=== PATIENT | male | born 1980 | race Caucasian/White ===

== ENCOUNTER 2016-09-16 15:00 | Outpatient (RCR) ==
--- NOTE | 2016-09-16 08:43 | RS.OPPTEV2 ---
Date of Note: 09/14/16 Visit #: 1 Date of Evaluation: 09/14/16 Payer Source: Workman's Comp Treatment Diagnosis: Neck pain, continued pain following cervical spine fusion. History of Condition/Mechanism of Injury:: Patient reports that he was injured on the job 11-14-15. Patient was diagnosed with cervicalgia and cervical disc displacement. He underwent cervical disc replacement surgery in March 2016 and had to have surgery again in May 2016. States the most recent surgery included placement of plastic and metal plates with screws for fixation of disc replacement. Prior Level of Function.....Patient was independent with: ADL's, Self Care, Work /Vocation, Caregiving, Ambulation/Mobility, Community Integration/Access Functional Limitations: Sleep, Reaching, Pushing, Pulling, Lifting, Carrying Current Subjective/complaints:: Patient reports onset of increased neck pain on 09/13/15. States his neck motion is limited. States ROM to the left is worse. States she has pain at the left side of the base of the skull to the left shoulder blade area. States he occasionally gets sharp pain into the left UE. He has headaches occasionally. States he recently had an MRI and was told that everything was in place. Medical History Medical History: Cancer Medical History Comments:: Melanoma Surgical History Comments:: Cervical disc replacement March 2016, Cervical spine surgery May 2016. Smoking Status: Current every day smoker Hx Home Medications: Suboxone,Protonix Patient's Goals: His goal is to get relief of neck pain and gain increased neck ROM. Pain Assessment - Pain Description Pain Location: left side of neck to left scapula, headaches Current Pain Intensity: 6/10 Worst Pain Intensity: 8/10 Functional Outcome Measure Neck Disability Index: 54 - G Codes & Severity Modifier G Codes & Modifier: NA Source of G Code score: NA Observation - Observation Inspection: Resting posture in sitting exhibits approximately 10-15 degrees of cervical flexion at rest. Posture: Forward Head, Rounded Shoulders, Scapula Asymmetry (left scapula is elevated) Handedness: Right - ROM Comments: Cervical extension 10 degrees past neutral, cervical flexion 60-70 degrees, rotation right 70-75 degrees, left rotation 50-55 degrees. Bilateral UE AROM. - Strength Cervical Extension: 3 Fair Cervical Flexion: 3 Fair Cervical Lateral Flexion: 3 Fair Comments: Demonstrates general UE strength of 4-/5 with reports of left sided neck pain during MMT of neck and UE's. Palpation Comments:: Patient reports tenderness with palpation along the left suboccipital myofascia and left upper traps. Demonstrates moderate muscle guarding along the left upper traps and cervical paraspinals. Minimal muscle guarding in the right upper traps and cervical paraspinals. Sensation - Sensation Right Upper Extremity: Intact/Normal Left Upper Extremity: Intact/Normal Interventions - Exercise/Activities/Manual Therapy Exercises/Activities: NA Manual Therapy: X 14 mins DTM to bilateral upper traps and cervical paraspinals , emphasis on the left upper traps, levator scapula and cervical paraspinals. Patient demonstrates active trigger point along the superior border of the left scapula. HOME EXERCISE PROGRAM: NA - Charges Total Direct Minutes: 60 mins Total Treatment Time: 60 mins Procedures billed for this date of service:: JUAN Benítez, manual therapy Assessment Assessment: Patient presents to therapy with diagnosis of neck pain. He exhibits limited cervical AROM and general weakness of the UE's and cervical spine. He demonstrates moderate muscle guarding of the left cervical paraspinals and upper traps. He demonstrates good potential to gain relief of neck pain with treatment to decrease muscle guarding and exercises to gain increased cervical spine stability and ROM. Patient Education: Education of diagnosis, Body/Joint mechanics, Home Exercise Program, Home Safety, Activity Modification, Education of Plan of Care Rehab Potential: Good Short Term Goals Goal #1: Patient will display independence with HEP. Goal to be met by: 09/29/16 Goal #2: Tenderness at left cervical paraspinals decreased to minimal. Goal to be met by: 09/29/16 Goal #3: Muscle tone of left upper traps and cervical paraspinals decreased to min. Goal to be met by: 09/29/16 Goal #4: Patient will demonstrate improved postural awareness. Goal to be met by: 09/29/16 Microgrinder Operator Goals Goal #1: Pt to demo. functional cervical AROM with minimal discomfort. Goal to be met by: 11/05/16 Goal #2: Pt to report headaches decreased to seldom. Goal to be met by: 11/05/16 Goal #3: Score on Neck Disability Index improved to 30. Goal to be met by: 11/05/16 Goal #4: Pt able to perform all functional activities and ADL's without difficulty. Goal to be met by: 11/05/16 Plan - Treatment to be Provided Procedures: Therapeutic Exercises, Therapeutic Activity, Manual Therapy, Patient Education Modalities: Electrical Stimulation, Cryotherapy, Hot Packs - Treatment Plan Frequency: 2 X week Duration: 6 weeks ORDER # VISITS AND/OR THROUGH DATE: 11/05/16 - Treatment Code (1) Cervicalgia Comments: M54.2 (2) Muscle hypertonia Comments: M62.89 (3) Frequent headaches Comments: R51 (4) Neck muscle weakness Comments: M53.82 (5) S/P cervical disc replacement Comments: Z98.890
--- NOTE | 2016-09-16 16:30 | RS.OPPTDN ---
Subjective Date of Note: 09/16/16 Visit #: 2 Date of Evaluation: 09/14/16 Payer Source: Workman's Comp Treatment Diagnosis: Neck pain, continued pain following cervical spine fusion. Current Subjective/complaints:: Reports the L side of the neck generally bothers him more than the R side,with some pain into the L UE/hand. Pain Assessment - Pain Description Pain Location: left side of neck to left scapula, headaches Pain Description: Radiating, Aching Current Pain Intensity: 6/10 - Treatment Modality: Electrical Stim Unattended Parameters/Method Applied: 20 mins. high volt to cervical paraspinals/UT's , channel 1 and 2 @ 85 pv. Patient Position: Sitting - Heat/Cryotherapy Treatment: Hot Pack (concurrent with e-stim) Interventions - Exercise/Activities/Manual Therapy Exercises/Activities: NA Total minutes of Exercise: 0 Manual Therapy: X 20 mins DTM to bilateral upper traps and cervical paraspinals , emphasis on the left upper traps, levator scapula and cervical paraspinals. Trigger point present at base of L cervical region. Total minutes of Manual Therapy: 20 HOME EXERCISE PROGRAM: NA - Charges Total Direct Minutes: 20 Total Treatment Time: 40 Procedures billed for this date of service:: hp,e-stim,ex 1 Assessment: Patient has good erythmic reaction in the upper traps during the manual therapy,does have guarded motion ,especially with cervical rotation today.He has understanding of HEP as he has had previous spnal surgeries,and to not push through sharp pain. Patient Education: Body/Joint mechanics, Home Exercise Program Patient demonstrates compliance with HEP?: Yes Short Term Goals Goal #1: Patient will display independence with HEP. Goal to be met by: 09/29/16 Goal #2: Tenderness at left cervical paraspinals decreased to minimal. Goal to be met by: 09/29/16 Goal #3: Muscle tone of left upper traps and cervical paraspinals decreased to min. Goal to be met by: 09/29/16 Goal #4: Patient will demonstrate improved postural awareness. Goal to be met by: 09/29/16 Insurance Advisor Goals Goal #1: Pt to demo. functional cervical AROM with minimal discomfort. Goal to be met by: 11/05/16 Goal #2: Pt to report headaches decreased to seldom. Goal to be met by: 05/19/17 Goal #3: Score on Neck Disability Index improved to 30. Goal to be met by: 11/05/16 Goal #4: Pt able to perform all functional activities and ADL's without difficulty. Goal to be met by: 11/05/16 Plan PLAN OF CARE EXPIRES ON:: 11/05/16 ORDER # VISITS AND/OR THROUGH DATE: 11/05/16 PLAN: Continue Plan of Care
== END 2016-09-17 ==
PROVIDERS: ATTEND Neurological Surgery
DX: M54.2 Cervicalgia (principal); Y99.0 Civilian activity done for income or pay

== ENCOUNTER 2016-10-07 15:15 | Outpatient (RCR) ==
--- NOTE | 2016-09-21 16:22 | RS.OPPTDN ---
Subjective Date of Note: 09/21/16 Visit #: 3 Date of Evaluation: 09/14/16 Payer Source: Workman's Comp Treatment Diagnosis: Neck pain, continued pain following cervical spine fusion. Current Subjective/complaints:: Patient reports the last session gave him some relief,but the L side of his neck/upper trap is very sore today. Pain Assessment - Pain Description Pain Location: left side of neck to left scapula, headaches Pain Description: Tightness, Aching, Chronic Current Pain Intensity: 4/10 - Treatment Modality: Electrical Stim Unattended Parameters/Method Applied: 20 mins. ,channel 1 @ 50 pv,channel 2 @ 80 pv to cervicla /UT. - Heat/Cryotherapy Treatment: Hot Pack (concurrent with e-stim) Interventions - Exercise/Activities/Manual Therapy Exercises/Activities: HEP review of chin tucks ,cervical rotation,lateral flexion in PAIN FREE ROM while on moist heat/e-stim. Total minutes of Exercise: 0 Manual Therapy: X 20 mins DTM to bilateral upper traps and cervical paraspinals , emphasis on the left upper traps, levator scapula and cervical paraspinals. Trigger point present at base of L cervical region. Total minutes of Manual Therapy: 20 HOME EXERCISE PROGRAM: Pain free cervical ROM in all directions,except avoid excessive extension. - Charges Total Direct Minutes: 20 Total Treatment Time: 40 Procedures billed for this date of service:: hp,e-stim,manual therapy Assessment: Patient has increased tenderness to L upper trap trigger point today ,has increased warmth and tone ,increased erythmic response.She has good understanding of HEP. Patient Education: Body/Joint mechanics, Education of Plan of Care Patient demonstrates compliance with HEP?: Yes Short Term Goals Goal #1: Patient will display independence with HEP. Goal to be met by: 09/29/16 Progress towards Goal:: Progressing Goal #2: Tenderness at left cervical paraspinals decreased to minimal. Goal to be met by: 09/29/16 Goal #3: Muscle tone of left upper traps and cervical paraspinals decreased to min. Goal to be met by: 09/29/16 Goal #4: Patient will demonstrate improved postural awareness. Goal to be met by: 09/29/16 Progress towards Goal:: Progressing Cash Application Clerk Goals Goal #1: Pt to demo. functional cervical AROM with minimal discomfort. Goal to be met by: 11/05/16 Goal #2: Pt to report headaches decreased to seldom. Goal to be met by: 11/05/16 Goal #3: Score on Neck Disability Index improved to 30. Goal to be met by: 11/05/16 Goal #4: Pt able to perform all functional activities and ADL's without difficulty. Goal to be met by: 11/05/16 Plan PLAN OF CARE EXPIRES ON:: 11/05/16 ORDER # VISITS AND/OR THROUGH DATE: 11/05/16 PLAN: Continue Plan of Care
--- NOTE | 2016-09-23 16:28 | RS.OPPTDN ---
Subjective Date of Note: 09/23/16 Visit #: 4 Date of Evaluation: 09/14/16 Payer Source: Workman's Comp Treatment Diagnosis: Neck pain, continued pain following cervical spine fusion. Current Subjective/complaints:: Patient reports increased soreness after las t session ,continues to be mostly on the L side of the neck. Pain Assessment - Pain Description Pain Location: left side of neck to left scapula, headaches Pain Description: Tightness, Aching, Chronic Current Pain Intensity: 4/10 - Treatment Modality: Electrical Stim Unattended Parameters/Method Applied: 20 mins. high volt ,channel 1 @ 80 pv,channel 2 @ 90 pv. to cervical/UT's. Patient Position: Sitting - Heat/Cryotherapy Treatment: Hot Pack (concurrent with e-stim) Interventions - Exercise/Activities/Manual Therapy Exercises/Activities: 20 mins. gentle cervical stretches for lateral flexion, chin tucks,isometric cervical retraction,rotation to L and R,occipital release at end of session. Total minutes of Exercise: 20 Manual Therapy: N/A Total minutes of Manual Therapy: 0 HOME EXERCISE PROGRAM: Pain free cervical ROM in all directions,except avoid excessive extension. - Charges Total Direct Minutes: 20 Total Treatment Time: 40 Procedures billed for this date of service:: hp,e-stim,ex 1 Assessment: Patient contines to report increased pain with motion to the left.He has muscle weakness and tremors present with isometrics today. Patient Education: Body/Joint mechanics, Home Exercise Program Patient demonstrates compliance with HEP?: Yes Short Term Goals Goal #1: Patient will display independence with HEP. Goal to be met by: 09/29/16 Progress towards Goal:: Progressing Goal #2: Tenderness at left cervical paraspinals decreased to minimal. Goal to be met by: 09/29/16 Goal #3: Muscle tone of left upper traps and cervical paraspinals decreased to min. Goal to be met by: 09/29/16 Goal #4: Patient will demonstrate improved postural awareness. Goal to be met by: 09/29/16 Progress towards Goal:: Progressing Snf Goals Goal #1: Pt to demo. functional cervical AROM with minimal discomfort. Goal to be met by: 11/05/16 Goal #2: Pt to report headaches decreased to seldom. Goal to be met by: 11/05/16 Goal #3: Score on Neck Disability Index improved to 30. Goal to be met by: 11/05/16 Goal #4: Pt able to perform all functional activities and ADL's without difficulty. Goal to be met by: 11/05/16 Plan PLAN OF CARE EXPIRES ON:: 11/05/16 ORDER # VISITS AND/OR THROUGH DATE: 11/05/16 PLAN: Continue Plan of Care
--- NOTE | 2016-09-28 16:31 | RS.OPPTDN ---
Subjective Date of Note: 09/28/16 Visit #: 5 Date of Evaluation: 09/14/16 Payer Source: Workman's Comp Treatment Diagnosis: Neck pain, continued pain following cervical spine fusion. Current Subjective/complaints:: Reports less neck pain today,but continues to have difficulty with rotation to the L. Pain Assessment - Pain Description Pain Location: left side of neck to left scapula, headaches Pain Description: Tightness, Aching, Chronic Current Pain Intensity: 3-4/10 - Treatment Modality: Electrical Stim Unattended Parameters/Method Applied: 20 mins. high volt to L cervical/UT ,@ 90 pv. Patient Position: Sitting - Heat/Cryotherapy Treatment: Hot Pack (concurrent with e-stim) Interventions - Exercise/Activities/Manual Therapy Exercises/Activities: 20 mins. HEP review,instructed in doorway stretches.Ended session with red theraband of postural pullbacks at shoulder level and pulldowns from overhead. Total minutes of Exercise: 20 Manual Therapy: N/A Total minutes of Manual Therapy: 0 HOME EXERCISE PROGRAM: Pain free cervical ROM in all directions,except avoid excessive extension. - Charges Total Direct Minutes: 20 Total Treatment Time: 40 Procedures billed for this date of service:: hp,e-stim,ex 1 Assessment: Patient tolerates new exercises given today,reports stretch discomfort ,but no sharp pain reported. Patient Education: Body/Joint mechanics, Home Exercise Program Patient demonstrates compliance with HEP?: Yes Short Term Goals Goal #1: Patient will display independence with HEP. Goal to be met by: 09/29/16 Progress towards Goal:: Partially Met Goal #2: Tenderness at left cervical paraspinals decreased to minimal. Goal to be met by: 09/29/16 Progress towards Goal:: Progressing Goal #3: Muscle tone of left upper traps and cervical paraspinals decreased to min. Goal to be met by: 09/29/16 Goal #4: Patient will demonstrate improved postural awareness. Goal to be met by: 09/29/16 Progress towards Goal:: Progressing Intermediate Goals Goal #1: Pt to demo. functional cervical AROM with minimal discomfort. Goal to be met by: 11/05/16 Goal #2: Pt to report headaches decreased to seldom. Goal to be met by: 11/05/16 Goal #3: Score on Neck Disability Index improved to 30. Goal to be met by: 11/05/16 Goal #4: Pt able to perform all functional activities and ADL's without difficulty. Goal to be met by: 11/05/16 Plan PLAN OF CARE EXPIRES ON:: 11/05/16 ORDER # VISITS AND/OR THROUGH DATE: 11/05/16 PLAN: Continue Plan of Care
--- NOTE | 2016-09-29 16:33 | RS.OPPTDN ---
Subjective Date of Note: 09/29/16 Visit #: 6 Date of Evaluation: 09/14/16 Payer Source: Workman's Comp Treatment Diagnosis: Neck pain, continued pain following cervical spine fusion. Current Subjective/complaints:: Reports hurting ,"a little more today" ,but tolerable. Pain Assessment - Pain Description Pain Location: left side of neck to left scapula, headaches Pain Description: Tightness, Aching, Chronic Current Pain Intensity: 09/27 - Treatment Modality: Electrical Stim Unattended Parameters/Method Applied: 20 mins. high volt,to cervical /UT's,channel 1 and 2 @ 75 pv. Patient Position: Sitting - Heat/Cryotherapy Treatment: Hot Pack (concurrent with e-stim) Interventions - Exercise/Activities/Manual Therapy Exercises/Activities: 20 mins. HEP review,instructed in doorway stretches.Ended session with red theraband of postural pullbacks at shoulder level and pulldowns from overhead. Total minutes of Exercise: 20 Manual Therapy: N/A Total minutes of Manual Therapy: 0 HOME EXERCISE PROGRAM: Pain free cervical ROM in all directions,except avoid excessive extension. - Charges Total Direct Minutes: 20 Total Treatment Time: 40 Procedures billed for this date of service:: hp,e-stim,ex 1 Assessment: No significant change as compared to last session,reports temporary relief only.We dsicussed if the results remain the same ,we will discuss the D/ C plan. Patient Education: Education of Plan of Care Short Term Goals Goal #1: Patient will display independence with HEP. Goal to be met by: 09/29/16 Progress towards Goal:: Partially Met Goal #2: Tenderness at left cervical paraspinals decreased to minimal. Goal to be met by: 09/29/16 Progress towards Goal:: No Change Goal #3: Muscle tone of left upper traps and cervical paraspinals decreased to min. Goal to be met by: 09/29/16 Progress towards Goal:: No Change Goal #4: Patient will demonstrate improved postural awareness. Goal to be met by: 09/29/16 Progress towards Goal:: Progressing English As A Second Language Teacher Goals Goal #1: Pt to demo. functional cervical AROM with minimal discomfort. Goal to be met by: 11/05/16 Progress towards goal: No Change Goal #2: Pt to report headaches decreased to seldom. Goal to be met by: 11/05/16 Goal #3: Score on Neck Disability Index improved to 30. Goal to be met by: 11/05/16 Goal #4: Pt able to perform all functional activities and ADL's without difficulty. Goal to be met by: 11/05/16 Plan PLAN OF CARE EXPIRES ON:: 11/05/16 ORDER # VISITS AND/OR THROUGH DATE: 11/05/16 PLAN: Continue Plan of Care
--- NOTE | 2016-10-05 16:07 | RS.OPPTDN ---
Subjective Date of Note: 10/05/16 Visit #: 7 Date of Evaluation: 09/14/16 Payer Source: Workman's Comp Treatment Diagnosis: Neck pain, continued pain following cervical spine fusion. Current Subjective/complaints:: Patient reports the neck feels some better today.He reports he does better if he keeps moving ,succh as daily activities, notices more stiffness when he is not as busy. Pain Assessment - Pain Description Pain Location: left side of neck to left scapula, headaches Pain Description: Tightness, Aching, Chronic Current Pain Intensity: 3/10 - Treatment Modality: Electrical Stim Unattended Parameters/Method Applied: 20 mins. high volt,one channel to L UT and medial border of scapula,@ 50 pv. Patient Position: Sitting - Heat/Cryotherapy Treatment: Hot Pack (concurrent with e-stim) Interventions - Exercise/Activities/Manual Therapy Exercises/Activities: 20 mins. HEP review,3/10 doorway stretches.Progressed to postural pullbacks with 10# on multi-gym,3/10 for overhead pulldowns,standing and seated,3/10 for pullbacks (rowing motion). Total minutes of Exercise: 20 Manual Therapy: N/A Total minutes of Manual Therapy: 0 HOME EXERCISE PROGRAM: Pain free cervical ROM in all directions,except avoid excessive extension.Postural exercises,doorway stretches. - Charges Total Direct Minutes: 20 Total Treatment Time: 40 Procedures billed for this date of service:: hp,e-stim,ex 1 Assessment: Patient tolerates the exercises better today,with no report of increased pain ,has improved awareness of posture. Patient Education: Education of diagnosis, Body/Joint mechanics, Home Exercise Program, Home Safety, Activity Modification, Education of Plan of Care Patient demonstrates compliance with HEP?: Yes Short Term Goals Goal #1: Patient will display independence with HEP. Goal to be met by: 09/29/16 Progress towards Goal:: Partially Met Goal #2: Tenderness at left cervical paraspinals decreased to minimal. Goal to be met by: 09/29/16 Progress towards Goal:: Progressing Goal #3: Muscle tone of left upper traps and cervical paraspinals decreased to min. Goal to be met by: 09/29/16 Progress towards Goal:: No Change Goal #4: Patient will demonstrate improved postural awareness. Goal to be met by: 09/29/16 Progress towards Goal:: Progressing System Support Developer Goals Goal #1: Pt to demo. functional cervical AROM with minimal discomfort. Goal to be met by: 11/05/16 Progress towards goal: Progressing Goal #2: Pt to report headaches decreased to seldom. Goal to be met by: 11/05/16 Goal #3: Score on Neck Disability Index improved to 30. Goal to be met by: 11/05/16 Goal #4: Pt able to perform all functional activities and ADL's without difficulty. Goal to be met by: 11/05/16 Plan PLAN OF CARE EXPIRES ON:: 11/05/16 ORDER # VISITS AND/OR THROUGH DATE: 11/05/16 PLAN: Continue Plan of Care
--- NOTE | 2016-10-07 16:30 | RS.OPPTDC ---
Date of Discharge: 10/07/16 Date of Evaluation: 09/14/16 Number of Visits: 8 Treatment Diagnosis: Neck pain, continued pain following cervical spine fusion. Current Complaints/Gains: Feels the therapy is temporary relief only.The cervical pain is about the same today,08/27. Pain Assessment - Pain Description Pain Location: left side of neck to left scapula, headaches Pain Description: Tightness, Aching, Chronic Current Pain Intensity: 08/27 Functional Outcome Measure Neck Disability Index: 36 - G Codes & Severity Modifier G Codes & Modifier: NA Source of G Code score: NA Observation - Observation Posture: Scapula Asymmetry Handedness: Right Gait - Gait Pattern General Gait Pattern Observation: No Deviations/Normal General Range of Motion: Cervical AROM : (degrees). extension 10,flexion 55-60,R rotation 65-70 ,L rotation 38 with pain - Heat/Cryotherapy Treatment: Hot Pack (20 mins.prior to exercises) Interventions - Exercise/Activities/Manual Therapy Exercises/Activities: 40 mins. HEP review,ROM measurements for cervical spine, patient education for posture,joint protection. Total minutes of Exercise: 30 Manual Therapy: N/A Total minutes of Manual Therapy: 0 HOME EXERCISE PROGRAM: Pain free cervical ROM in all directions,except avoid excessive extension.Postural exercises,doorway stretches. - Charges Total Direct Minutes: 40 Total Treatment Time: 60 Procedures billed for this date of service:: hp,ex 2,ADL 1 Assessment Assessment: Patient has minimal progress made at this time.He feels the therapy sessions are temporary relief only.He understands the HEP well,is aware of D/C plan today. Patient Education: Education of diagnosis, Body/Joint mechanics, Home Exercise Program, Home Safety, Activity Modification, Education of Plan of Care Rehab Potential: Good Short Term Goals Goal #1: Patient will display independence with HEP. Goal to be met by: 09/29/16 Progress towards Goal:: Met Goal #2: Tenderness at left cervical paraspinals decreased to minimal. Goal to be met by: 09/29/16 Progress towards Goal:: Progressing Goal #3: Muscle tone of left upper traps and cervical paraspinals decreased to min. Goal to be met by: 09/29/16 Progress towards Goal:: No Change Goal #4: Patient will demonstrate improved postural awareness. Goal to be met by: 09/29/16 Progress towards Goal:: Progressing Custodial Goals Goal #1: Pt to demo. functional cervical AROM with minimal discomfort. Goal to be met by: 11/05/16 Progress towards goal: No Change Goal #2: Pt to report headaches decreased to seldom. Goal to be met by: 11/05/16 Progress towards goal: No Change Goal #3: Score on Neck Disability Index improved to 30. Goal to be met by: 11/05/16 (36) Goal #4: Pt able to perform all functional activities and ADL's without difficulty. Goal to be met by: 11/05/16 Progress towards goal: No Change Plan Reason for Discharge:: Lack of Progress
== END 2016-10-17 ==
PROVIDERS: ATTEND Neurological Surgery
DX: M54.2 Cervicalgia (principal); Y99.0 Civilian activity done for income or pay

== ENCOUNTER 2017-05-04 15:12 | Emergency (ER) ==
[2017-05-04 15:16] VITALS: BP 153/79; TEMP 98.1; BMI 23.5
[2017-05-04] MEDS ORDERED: ANTIVERT PO STA (15:23)
--- NOTE | 2017-05-04 15:23 | ED.PDOC ---
General ED Provider: Dr. SAMIA HALEY JR Chief Complaint: Dizziness Stated Complaint: dizziness for 2-3 days.lies down room spins. inner ear taking amoxil and medrol dose pack getting worse. frontal headache with runny nose[End]2-3 days 98.1 75 20 96% 153/79 frontal headache 10/27 Time Seen by Physician: 15:22 Mode of Arrival: Walk-In Information Source: Patient Exam Limitations: No limitations Nursing and Triage Documentation Reviewed and Agree: No Review of Systems - Review Of Systems Constitutional: Reports: Malaise, Weakness Eyes: Reports: No symptoms Ears, Nose, Mouth, Throat: Reports: Nose discharge. Denies: Ear pain Respiratory: Reports: Cough Cardiac: Reports: No symptoms GI: Reports: No symptoms : Reports: No symptoms Musculoskeletal: Reports: No symptoms Skin: Reports: No symptoms Neurological: Reports: Headache, Weakness, Other (dizzy) Endocrine: Reports: No symptoms Hematologic/Lymphatic: Reports: No symptoms All Other Systems: Other Past Medical History - Past Medical History Previously Healthy: Yes Endocrine: Reports: None Cardiovascular: Reports: None Respiratory: Reports: None Hematological: Reports: None Gastrointestinal: Reports: None Genitourinary: Reports: None Neuro/Psych: Reports: None Musculoskeletal: Reports: Back Pain (neck surgery) Cancer: Reports: Other (ca melanoma) - Surgical History General Surgical History: Reports: Appendectomy, Orthopedic (neck surgery x2, hand surgery) - Family History Family History: Reports: Unknown - Social History Smoking Status: Current every day smoker, Heavy tobacco smoker Hx Substance Use: No Alcohol Screening: None Physical Exam - Physical Exam Appearance: Ill-appearing Ill-appearing: Mild Pain Distress: Mild Eyes: JEAN PAUL, EOMI, Conjunctiva clear ENT: Ears normal (right tm dull no ryley), Nose normal, Oropharynx normal Respiratory: Airway patent Cardiovascular: RRR, Pulses normal, No rub, No murmur GI/: Soft, Nontender, No masses, Bowel sounds normal, No Organomegaly Musculoskeletal: Normal strength, ROM intact, No edema, No calf tenderness Skin: Warm, Dry, Normal color Neurological: Sensation intact, Motor intact, Reflexes intact, Cranial nerves intact, Alert, Oriented Psychiatric: Affect appropriate, Mood appropriate Critical Care Note - Critical Care Note Total Time (mins): 15 Course - Course Vital Signs: Temp Pulse Resp BP Pulse Ox 11/15/17 15:12 98.1 F 75 20 153/79 H 96 Departure - Departure Time of Disposition: 16:53 Disposition: HOME SELF-CARE Discharge Problem: Dizziness Instructions: Vertigo (ED) Condition: Good Pt referred to PMD for follow-up: Yes Additional Instructions: meclizine four times a day as needed for dizziness call PMD in morning to arrange follow up return if headache worsens if loss of control of arm leg or speech return if worse discuss Brain scan with PMD Prescriptions: Meclizine HCl [Antivert] 25 mg PO QID PRN #30 tablet PRN Reason: Dizziness Allergies/Adverse Reactions: Allergies No Known Allergies Allergy (Verified 05/04/17 15:16) Home Medications: Ambulatory Orders Buprenorphine HCl/Naloxone HCl [Suboxone 8 mg-2 mg Sl Film] 1 each SL DAILY Meclizine HCl [Antivert] 25 mg PO QID PRN #30 tablet 05/04/17 Pantoprazole Sodium [Protonix] 40 mg PO QDAC 05/04/17
[2017-05-04] MEDS ORDERED: NORCO 5-325 PO STA (15:48)
--- NOTE | 2017-05-04 16:29 | CT ---
EXAM: CT facial bones without contrast. HISTORY: Vertigo. Frontal headache. Dizziness and lightheadedness. COMPARISON: None available. TECHNIQUE: Multiple axial images of the facial bones were obtained without contrast and were reforma tted in the sagittal and coronal planes. FINDINGS: The bones of the face are intact without evidence for depressed fracture or destructive pr ocess. The paranasal sinuses and visualized mastoid air cells are clear. The globes and intraorbita l structures are intact. No focal soft tissue abnormality is seen. There has been previous ACDF at C 5-6. IMPRESSION: No acute abnormality of the facial bones.
--- NOTE | 2017-05-04 16:32 | CT ---
EXAM: CT head without contrast HISTORY: Vertigo and frontal headache COMPARISON: None TECHNIQUE: Serial axial images of the brain were obtained from the skull base to the vertex without IV contrast. FINDINGS: The ventricles, cisterns and sulci are normal. The hall-white matter junction is well kaylynn ntained. No midline shift or mass is identified. There is no abnormal intra or extra-axial fluid co llection. The paranasal sinuses and mastoid air cells are clear. The osseous calvarium is intact. IMPRESSION: No acute intracranial abnormality or hemorrhage. If further evaluation is clinically ind icated, MRI may be obtained.
== END 2017-05-04 17:03 | disposition home or self-care (01) ==
LOC: ED 15:12
DX: R42 Dizziness and giddiness (principal); R51 Headache; R53.1 Weakness; F17.210 Nicotine dependence, cigarettes, uncomplicated
CPT/HCPCS: 99282

== ENCOUNTER 2017-05-08 12:43 | Emergency (ER) ==
[2017-05-08 12:48] VITALS: TEMP 98.3; BMI 23.6
[2017-05-08] MEDS ORDERED: ZOFRAN 4 MG/2 ML IVP STA (13:06)
[2017-05-08] MEDS ORDERED: SODIUM CHLORIDE 1,000 ML IV STA (13:06)
--- NOTE | 2017-05-08 13:07 | ED.PDOC ---
General ED Provider: Dr. BALBIR TELLEZ Chief Complaint: Nausea/Vomiting Stated Complaint: Pateint is a 36 year old maelw how was seen in this ED 2 days ago for dizziness, was diagnosed with vertigo and prescribed antivert . states he has been using the medications. [place] better initially the got worse. He states he is unable to keep fluids down. Time Seen by Physician: 13:06 Mode of Arrival: Walk-In Information Source: Patient Exam Limitations: No limitations Primary Care Provider: TRICE VALLECILLO Nursing and Triage Documentation Reviewed and Agree: Yes GI Complaint Exam - Vomiting/Diarrhea Complaint/Exam Onset/Duration: 3 days Symptoms Are: Still present Episodes of Vomiting over last 24 Hours: 3 Initial Severity: Moderate Current Severity: Moderate Character of Vomiting: Reports: Non-bilious Aggravating: Reports: Position, Movement Alleviating: Reports: Lying still Associated Signs and Symptoms: Reports: Dizziness, Light-headedness Last Oral Intake: prior to arrival. Non-GI Risk Factors: Reports: None Surgical Obstruction Risk Factors: Reports: None Related Surgical History: Reports: None Abdominal Findings: Present: None Kussmaul Respirations Present: No Differential Diagnoses: Dehydration, Gastritis, PUD, Viral Gastroenteritis Review of Systems - Review Of Systems Constitutional: Reports: No symptoms Eyes: Reports: No symptoms Ears, Nose, Mouth, Throat: Reports: No symptoms Respiratory: Reports: No symptoms Cardiac: Reports: Lightheadedness. Denies: Chest pain, Palpitations GI: Reports: No symptoms : Reports: No symptoms Musculoskeletal: Reports: No symptoms Skin: Reports: No symptoms Neurological: Reports: Other (dizziness) Endocrine: Reports: No symptoms Hematologic/Lymphatic: Reports: No symptoms All Other Systems: Reviewed and Negative Past Medical History - Past Medical History Previously Healthy: Yes Endocrine: Reports: None Cardiovascular: Reports: None Respiratory: Reports: None Hematological: Reports: None Gastrointestinal: Reports: None Genitourinary: Reports: None Neuro/Psych: Reports: None Musculoskeletal: Reports: Back Pain (neck surgery) Cancer: Reports: Other (ca melanoma) - Surgical History General Surgical History: Reports: Appendectomy, Orthopedic (neck surgery x2, hand surgery) - Family History Family History: Reports: Unknown - Social History Smoking Status: Current every day smoker, Heavy tobacco smoker Hx Substance Use: No Alcohol Screening: None Physical Exam - Physical Exam Appearance: Ill-appearing Ill-appearing: Mild Eyes: JEAN PAUL, EOMI, Conjunctiva clear ENT: Ears normal, Nose normal, Oropharynx normal Neck: Supple Respiratory: Airway patent, Breath sounds clear, Breath sounds equal, Respirations nonlabored Cardiovascular: RRR, Pulses normal, No rub, No murmur GI/: Soft, Nontender, No masses, Bowel sounds normal, No Organomegaly Musculoskeletal: Normal strength, ROM intact, No edema, No calf tenderness Skin: Warm, Dry Neurological: Sensation intact, Motor intact, Alert, Oriented Psychiatric: Anxious Interpretation - Radiology Interpretation Radiology Interpretation By: Radiologist Radiology Results: Negative Exam Interpreted: CT Scan - EKG Interpretation Time of EKG #1: 14:22 Rate: Normal Rhythm: Sinus Ectopy: None Xenia: NL ST Segment: Normal Re-Evaluation - Re-Evaluation Time of Re-Evaluation: 16:27 Status: Improved (but still has some dizziness. ) Physician Notification - Case Discussed Physician Notified: Dr castro Time of Notification: 15:03 (No further recommendation. Advised for patient to wait for Dr vallecillo. Patient refused to wait. ) Critical Care Note - Critical Care Note Total Time (mins): 0 Course - Course Hematology/Chemistry: 05/08/17 13:15 05/08/17 13:15 Orders, Labs, Meds: Lab Review 05/08/17 05/08/17 05/08/17 13:15 13:15 13:15 WBC 6.54 RBC 4.91 Hgb 14.9 Hct 43.1 MCV 87.8 MCH 30.3 MCHC 34.6 RDW Coeff of Eddie 12.1 Plt Count 223 Immature Gran % (Auto) 0.2 Neut % (Auto) 50.2 Lymph % (Auto) 40.4 Clinch % (Auto) 6.4 Eos % (Auto) 2.3 Baso % (Auto) 0.5 Immature Gran # (Auto) 0.0 Neut # 3.3 Lymph # 2.6 Clinch # 0.4 Eos # 0.2 Baso # 0.0 Sodium 140 Potassium 4.1 Chloride 107 Carbon Dioxide 25 Anion Gap 12.1 BUN 6 L Creatinine 0.84 Estimated GFR (MDRD) 102.00 BUN/Creatinine Ratio 7.14 Glucose 78 Calcium 8.9 Total Bilirubin 0.33 AST 24 ALT 23 Alkaline Phosphatase 41 L Total Creatine Kinase 127 CK-MB (CK-2) 1.0 CK-MB (CK-2) % 0.22573 Troponin I < 0.0100 Total Protein 6.3 L Albumin 3.6 Globulin 2.7 Albumin/Globulin Ratio 1.33 Amylase 33 Lipase 42 Urine Color Urine Clarity Urine pH Ur Specific [place] Urine Protein Urine Glucose (UA) Urine Ketones Urine Blood Urine Nitrite Urine Bilirubin Urine Urobilinogen Ur Leukocyte Esterase Urine Opiates Screen Ur Oxycodone Screen Urine Methadone Screen Ur Propoxyphene Screen Ur Barbiturates Screen U Tricyclic Antidepress Ur Phencyclidine Scrn Ur Amphetamine Screen U Methamphetamines Scrn U Benzodiazepines Scrn Urine Cocaine Screen U Cannabinoids Screen 05/08/17 05/08/17 15:41 15:41 WBC RBC Hgb Hct MCV MCH MCHC RDW Coeff of Eddie Plt Count Immature Gran % (Auto) Neut % (Auto) Lymph % (Auto) Clinch % (Auto) Eos % (Auto) Baso % (Auto) Immature Gran # (Auto) Neut # Lymph # Clinch # Eos # Baso # Sodium Potassium Chloride Carbon Dioxide Anion Gap BUN Creatinine Estimated GFR (MDRD) BUN/Creatinine Ratio Glucose Calcium Total Bilirubin AST ALT Alkaline Phosphatase Total Creatine Kinase CK-MB (CK-2) CK-MB (CK-2) % Troponin I Total Protein Albumin Globulin Albumin/Globulin Ratio Amylase Lipase Urine Color Yellow Urine Clarity Clear Urine pH 6.5 Ur Specific [place] 1.010 Urine Protein Negative Urine Glucose (UA) Negative Urine Ketones Negative Urine Blood Negative Urine Nitrite Negative Urine Bilirubin Negative Urine Urobilinogen 0.2 Ur Leukocyte Esterase Negative Urine Opiates Screen Negative Ur Oxycodone Screen Negative Urine Methadone Screen Negative Ur Propoxyphene Screen Negative Ur Barbiturates Screen Negative U Tricyclic Antidepress Negative Ur Phencyclidine Scrn Negative Ur Amphetamine Screen Negative U Methamphetamines Scrn Negative U Benzodiazepines Scrn Negative Urine Cocaine Screen Negative U Cannabinoids Screen Negative Orders Category Date Time Status EKG-(ED ONLY) Stat CARDIO 05/08/17 13:56 Completed ED IV/MEDIPORT/POWERPORT .ONCE EMERGENCY 05/08/17 13:07 Active Orthostatic [ED ORTHOSTATIC VITAL SIGNS] .ONCE EMERGENCY 05/08/17 15:48 Active AMYLASE Stat LAB 05/08/17 13:15 Completed CBC W/ AUTO DIFF Stat LAB 05/08/17 13:15 Completed CK [CREATINE KINASE] Stat LAB 05/08/17 13:15 Completed COMPREHENSIVE METABOLIC PANEL Stat LAB 05/08/17 13:15 Completed LIPASE Stat LAB 05/08/17 13:15 Completed TROPONIN I Stat LAB 05/08/17 13:15 Completed URINALYSIS C & S IF INDICATED Stat LAB 05/08/17 15:41 Completed URINE DRUG SCREEN (RAPID FOR ED) [DRUG SCREEN, URINE, LAB 05/08/17 15:41 Completed RAPID] Stat 0.9 % Sodium Chloride [Saline Flush] MEDS 05/08/17 13:06 Discontinued 1 syr IVF PRN PRN Mag-Al Plus//Lidocaine [Gi Cocktail] MEDS 05/08/17 13:56 Discontinued 30 ml PO ONCE STA Ondansetron HCl/Pf [Zofran 4 mg/2 ml] MEDS 05/08/17 13:06 Discontinued 4 mg IVP ONCE STA Pantoprazole Sodium [Protonix IV] MEDS 05/08/17 13:56 Discontinued 40 mg IVP ONCE STA Sodium Chloride 0.9% [Sodium Chloride] 1,000 ml MEDS 05/08/17 13:[address] HEAD W/O CONTRAST Stat RADS 05/08/17 14:22 Completed Medications Discontinued Medications Generic Name Dose Route Start Last Admin Trade Name Freq PRN Reason Stop Dose Admin Al Hydroxide/Mg Hydroxide 30 ml 05/08/17 13:56 05/08/17 14:03 Gi Cocktail PO 05/08/17 13:57 30 ml ONCE STA Administration Sodium Chloride 1,000 mls @ 1,000 mls/hr 05/08/17 13:06 05/08/17 13:24 Sodium Chloride IV 05/08/17 14:05 1,000 mls/hr BOLUS STA Administration Ondansetron HCl 4 mg 05/08/17 13:06 05/08/17 13:25 Zofran 4 Mg/2 Ml IVP 05/08/17 13:07 4 mg ONCE STA Administration Pantoprazole Sodium 40 mg 05/08/17 13:56 05/08/17 14:04 Protonix Iv IVP 05/08/17 13:57 40 mg ONCE STA Administration Sodium Chloride 1 syr 05/08/17 13:06 05/08/17 13:24 Saline Flush IVF 1 syr PRN PRN Administration To flush IV Vital Signs: Temp Pulse Resp BP Pulse Ox 05/08/17 15:55 100 H 129/91 H 05/08/17 15:54 80 139/93 H 05/08/17 12:44 98.3 F 90 20 130/82 97 Departure - Departure Time of Disposition: 16:27 Disposition: HOME SELF-CARE Discharge Problem: Dizziness Instructions: Vertigo (ED), Dizziness (ED) Condition: Fair Pt referred to PMD for follow-up: Yes Additional Instructions: Follow up with PCP in 2 days Continue home medications for dizziness. Allergies/Adverse Reactions: Allergies No Known Allergies Allergy (Verified 05/08/17 12:49) Home Medications: Ambulatory Orders Buprenorphine HCl/Naloxone HCl [Suboxone 8 mg-2 mg Sl Film] 1 each SL DAILY Meclizine HCl [Antivert] 25 mg PO QID PRN #30 tablet 05/04/17 Pantoprazole Sodium [Protonix] 40 mg PO QDAC 05/04/17 Disposition Discussed With: Patient
[2017-05-08 13:23] LABS: BASOPHILS % (AUTO) 0.5 % (0.0-3.0); EOSINOPHILS # (AUTO) 0.2 K/ul (0.0-0.7); EOSINOPHILS % (AUTO) 2.3 % (0.0-7.0); HEMATOCRIT 43.1 % (42.0-52.0); HEMOGLOBIN 14.9 g/dl (14.0-18.0); IMMATURE GRANULOCYTE % (AUTO) 0.2 % (0.0-5.0); LYMPHOCYTES # (AUTO) 2.6 K/uL (0.60-3.4); LYMPHOCYTES % (AUTO) 40.4 (10.0-50.0); MEAN CORPUSCULAR HEMOGLOBIN 30.3 pg (27.0-31.0); MEAN CORPUSCULAR HGB CONC 34.6 (31.8-35.4); MEAN CORPUSCULAR VOLUME 87.8 fl (80.0-94.0); MONOCYTES # (AUTO) 0.4 K/uL (0.4-2.0); MONOCYTES % (AUTO) 6.4 (0-10); NEUTROPHILS # (AUTO) 3.3 K/ul (2.0-6.9); NEUTROPHILS % (AUTO) 50.2; PLATELET COUNT 223 10^3/uL (140-440); RED BLOOD COUNT 4.91 10^6/ul (4.70-6.10); WHITE BLOOD COUNT 6.54 K/ul (4.2-10.2)
[2017-05-08 13:41] LABS: ALBUMIN 3.6 g/dL (3.4-5.0); ALBUMIN/GLOBULIN RATIO 1.33; ANION GAP 12.1; BILIRUBIN,TOTAL 0.33 mg/dL (0.00-1.20); BUN/CREATININE RATIO 7.14; CALCIUM 8.9 mg/dL (8.2-10.2); CREATININE 0.84 mg/dL (0.60-1.10); POTASSIUM 4.1 mmol/L (3.5-5.1); TOTAL PROTEIN 6.3 g/dL (6.4-8.2)
[2017-05-08] MEDS ORDERED: GI COCKTAIL PO STA (13:56)
[2017-05-08] MEDS ORDERED: PROTONIX IV IVP STA (13:56)
[2017-05-08 14:36] LABS: CREATINE KINASE 127 U/L
--- NOTE | 2017-05-08 15:13 | CT ---
Exam: CT brain without contrast Clinical indication: Dizziness. Comparison: 05/04/2017. TECHNIQUE: Axial unenhanced CT images from the skull base through the brain were obtained. Coronal and sagital reformats were performed. Findings: There is no evidence of intra or extra-axial hemorrhage. There is no evidence of mass, infarct or midline shift. The ventricles and basilar cisterns are within normal limits. The visualized paranasal sinuses and mastoid air cells are clear. The visualized bony structures are unremarkable. Impression: Negative unenhanced CT of the brain.
[2017-05-08 15:47] LABS: BILIRUBIN,URINE Negative (NEGATIVE); KETONES,URINE Negative (NEGATIVE); LEUKOCYTE ESTERASE ,URINE Negative (NEGATIVE); NITRITE,URINE Negative (NEGATIVE); PH,URINE 6.5 (5-9); PROTEIN,URINE Negative (NEGATIVE); URINE, BLOOD Negative (NEGATIVE)
[2017-05-08 15:48] LABS: ADD URINE MICROSCOPIC NO
[2017-05-08 15:55] VITALS: BP 141/96
[2017-05-08 15:56] LABS: COCAIN SCREEN,URINE NEGATIVE (NEGATIVE)
== END 2017-05-08 16:45 | disposition home or self-care (01) ==
LOC: ED 12:43
DX: R42 Dizziness and giddiness (principal); R11.2 Nausea with vomiting, unspecified; F17.210 Nicotine dependence, cigarettes, uncomplicated
CPT/HCPCS: 36415; 80053; 80306; 81001; 82150; 82550; 82553; 83690; 84484; 85025; 93005; 93010; 96361; 96374; 96375; 99283

== ENCOUNTER 2017-07-19 18:46 | Emergency (ER) ==
[2017-07-19] MEDS ORDERED: ROCEPHIN IM STA (18:50)
[2017-07-19] MEDS ORDERED: DECADRON 4 MG/ML SDV IM STA (18:50)
[2017-07-19] MEDS ORDERED: LIDOCAINE HCL 1% SDV SUBCUT STA (18:50)
[2017-07-19] MEDS ORDERED: DUONEB NEB STA (18:50)
[2017-07-19 18:52] VITALS: BP 168/101; TEMP 97.7; BMI 23.8
--- NOTE | 2017-07-19 19:17 | CT ---
Exam: CT of the chest without contrast History: Cough Technique: [address] of the chest without intravascular contrast FINDINGS: Lung windows show no pulmonary parenchymal abnormalities. No pleural fluid or pneumothora x. The heart, great vessels and pericardium appear normal by noncontrast CT. No abnormalities of th e chest wall soft tissues or bony thorax. Prior cervical spine hardware within the field of view. N o abnormalities of the upper abdomen. Impression: 1. No significant abnormality of the chest.
--- NOTE | 2017-07-19 19:36 | ED.PDOC ---
General ED Provider: Dr. TRICE VALLECILLO-ER Chief Complaint: Respiratory Complaint Stated Complaint: im coughing up some green mucous Time Seen by Physician: 19:00 Mode of Arrival: Walk-In Information Source: Patient Exam Limitations: No limitations Primary Care Provider: TRICE VALLECILLO Nursing and Triage Documentation Reviewed and Agree: Yes Reviewed sepsis parameters & appropriate labs ordered?: Yes System Inflammatory Response Syndrome: Not Applicable Sepsis Protocol: For patient's 13 years and over: Temp is 96.8 and below OR 101 and greater Pulse >90 BPM Resp >20/minute Acutely Altered Mental Status Are patient's symptoms suggestive of a new infection, such as: -Pneumonia -Skin, Soft Tissue -Endocarditis -UTI -Bone, Joint Infection -Implantable Device -Acute Abdominal Infection -Wound Infection -Meningitis -Blood Stream Catheter Infection -Unknown Respiratory Complaint Exam - Respiratory Complaint/Exam Onset/Duration: 3 days Symptoms Are: Still present Timing: Intermittent Initial Severity: Mild Current Severity: Moderate Location: Chest Character: Reports: Productive cough Aggravating: Reports: URI Alleviating: Reports: None Associated Signs and Symptoms: Reports: URI, Nasal congestion, Decreased oral intake. Denies: Rapid breathing, Dyspnea, Fever, Chills, Chest pain, Pleuritic chest pain, Wheezing, Hemoptysis, Dizziness, Calf pain, Calf swelling, Edema, Hoarseness, Sinus discomfort, Vomiting, Sore throat, Weight loss, Increased thirst, Increased appetite, Increased urination Related History: Reports: Similar episode History of Healthcare-Acquired Pneumonia: No Related Surgical History: Reports: None Home Oxygen Use: No Recent Stress Test: No Recent Echo/LV Function: No Current Antibiotic Use: No Current Asthma Medication Use: No Respiratory Distress: None Inadequate Respiratory Effort: No Dysphagia Present: No Stridor Present: No Accessory Muscle Use: No Retractions: Not Present Diminished Breath Sounds: No Sinus Tenderness: None Grunting Respirations: No Kussmaul Respirations: No Differential Diagnoses: Bronchitis, URI, Influenza Review of Systems - Review Of Systems Constitutional: Reports: No symptoms Eyes: Reports: No symptoms Ears, Nose, Mouth, Throat: Reports: Nose discharge Respiratory: Reports: Cough Cardiac: Reports: No symptoms GI: Reports: No symptoms : Reports: No symptoms Musculoskeletal: Reports: No symptoms Skin: Reports: No symptoms Neurological: Reports: No symptoms Endocrine: Reports: No symptoms Hematologic/Lymphatic: Reports: No symptoms All Other Systems: Reviewed and Negative Past Medical History - Past Medical History Previously Healthy: Yes Endocrine: Reports: None Cardiovascular: Reports: None Respiratory: Reports: None Hematological: Reports: None Gastrointestinal: Reports: None Genitourinary: Reports: None Neuro/Psych: Reports: None Musculoskeletal: Reports: Back Pain (neck surgery) Cancer: Reports: Other (ca melanoma) - Surgical History General Surgical History: Reports: Appendectomy, Orthopedic (neck surgery x2, hand surgery) - Family History Family History: Reports: Unknown - Social History Smoking Status: Current every day smoker, Heavy tobacco smoker Hx Substance Use: No Alcohol Screening: None Lives: With family - Immunizations Tetanus Shot up to Date: Yes Physical Exam - Physical Exam Appearance: Well-appearing Eyes: JEAN PAUL, EOMI, Conjunctiva clear ENT: Ears normal, Nose normal, Oropharynx normal Neck: Supple Respiratory: Rhonchi Cardiovascular: RRR GI/: Soft, Nontender, No masses, Bowel sounds normal, No Organomegaly Musculoskeletal: Normal strength, ROM intact, No edema, No calf tenderness Skin: Warm, Dry, Normal color Neurological: Sensation intact, Motor intact, Reflexes intact, Cranial nerves intact, Alert, Oriented Psychiatric: Affect appropriate, Mood appropriate Interpretation - Radiology Interpretation Radiology Interpretation By: Radiologist Radiology Results: Negative Exam Interpreted: CT Scan - EKG Interpretation Time of EKG #1: 19:36 Rate: Normal, Ruslan Rhythm: Sinus Ectopy: None Prosper: NL ST Segment: Normal Interpretation: sinus ruslan Re-Evaluation - Re-Evaluation Time of Re-Evaluation: 19:46 Status: Improved Vital Signs Stable: Yes Pain Level: 0 Appearance: NAD Lungs: Clear Skin: Warm and Dry Neuro: Alert and Oriented X3 CV: RRR Critical Care Note - Critical Care Note Total Time (mins): 0 Course - Course Hematology/Chemistry: 07/19/17 17:12 07/19/17 17:12 Orders, Labs, Meds: Lab Review 07/19/17 07/19/17 07/19/17 17:12 17:12 18:53 WBC 5.74 RBC 5.08 Hgb 15.2 Hct 44.6 MCV 87.8 MCH 29.9 MCHC 34.1 RDW Coeff of Eddie 12.2 Plt Count 202 Immature Gran % (Auto) 0.2 Neut % (Auto) 33.6 Lymph % (Auto) 55.1 H C[place] % (Auto) 7.5 Eos % (Auto) 3.1 Baso % (Auto) 0.5 Immature Gran # (Auto) 0.0 Neut # 1.9 L Lymph # 3.2 Crenshaw # 0.4 Eos # 0.2 Baso # 0.0 Sodium 141 Potassium 3.5 Chloride 106 Carbon Dioxide 28 Anion Gap 10.5 BUN 9 Creatinine 0.80 Estimated GFR (MDRD) 108.00 BUN/Creatinine Ratio 11.25 Glucose 103 H Calcium 8.9 Total Bilirubin 0.4 AST 18 ALT 16 Alkaline Phosphatase 45 L Total Protein 6.6 Albumin 3.7 Globulin 2.9 Albumin/Globulin Ratio 1.28 Influenza A (Rapid) Negative by naat Influenza B (Rapid) Negative by naat Orders Category Date Time Status EKG-(ED ONLY) Stat CARDIO 07/19/17 18:49 Ordered NEBULIZER TREATMENT Stat CARDIO 07/19/17 18:50 Ordered BLOOD CULTURE (ED ONLY) Stat LAB 07/19/17 17:12 Received CBC W/ AUTO DIFF Stat LAB 07/19/17 17:12 Completed COMPREHENSIVE METABOLIC PANEL Stat LAB 07/19/17 17:12 Completed FLU A/B MOLECULAR Stat LAB 07/19/17 18:53 Completed MOLECULAR GROUP A STREP Stat LAB 07/19/17 18:53 Completed Ceftriaxone Sodium [Rocephin] MEDS 07/19/17 18:50 Discontinued 1 gm IM ONCE STA Dexamethasone 4 mg/ml Inj [Decadron 4 mg/ml Sdv] MEDS 07/19/17 18:50 Discontinued 8 mg IM ONCE STA Ipratropium/Albuterol Neb [Duoneb] MEDS 07/19/17 18:50 Discontinued 1 vial NEB ONCE STA Lidocaine HCl/Pf [Lidocaine HCl 1% Sdv] MEDS 07/19/17 18:50 Discontinued 5 [address] SU[address]UT ONCE STA CT CHEST W/O CONTRAST Stat RADS 07/19/17 18:50 Completed Medications Discontinued Medications Generic Name Dose Route Start Last Admin Trade Name Freq PRN Reason Stop Dose Admin Albuterol/Ipratropium 1 vial 07/19/17 18:50 07/19/17 19:05 Duoneb NEB 07/19/17 18:51 1 vial ONCE STA Administration Ceftriaxone Sodium 1 gm 07/19/17 18:50 07/19/17 19:15 Rocephin IM 07/19/17 18:51 1 gm ONCE STA Administration Dexamethasone Sodium Phosphate 8 mg 07/19/17 18:50 07/19/17 19:14 Decadron 4 Mg/Ml Sdv IM 07/19/17 18:51 8 mg ONCE STA Administration Lidocaine HCl 5 ml 07/19/17 18:50 07/19/17 19:14 Lidocaine Hcl 1% Sdv SUBCUT 07/19/17 18:51 5 ml ONCE STA Administration Vital Signs: Temp Pulse Resp BP Pulse Ox 07/19/17 18:47 97.7 F 75 16 168/101 H 98 Departure - Departure Time of Disposition: 19:36 Disposition: HOME SELF-CARE Discharge Problem: Bronchitis Instructions: Acute Bronchitis (ED) Condition: Good Pt referred to PMD for follow-up: Yes IPMP verified?: No Additional Instructions: biaxin 500mg bid x 10 days--medrol dose pack--tessalon perles 200mg tid prn coiugh 30--stop smoking--recheck in 72hrs if not better- Allergies/Adverse Reactions: Allergies No Known Allergies Allergy (Verified 05/08/17 12:49) Home Medications: Ambulatory Orders Buprenorphine HCl/Naloxone HCl [Suboxone 8 mg-2 mg Sl Film] 1 each SL DAILY Meclizine HCl [Antivert] 25 mg PO QID PRN #30 tablet 05/04/17 Pantoprazole Sodium [Protonix] 40 mg PO QDAC 05/04/17 Disposition Discussed With: Patient
== END 2017-07-19 20:02 | disposition home or self-care (01) ==
LOC: ED 18:46
DX: J40 Bronchitis, not specified as acute or chronic (principal); F17.210 Nicotine dependence, cigarettes, uncomplicated
CPT/HCPCS: 36415; 80053; 85025; 87040; 87502; 87651; 93005; 93010; 94640; 96372; 99283

== ENCOUNTER 2017-09-18 14:45 | Emergency (ER) | payer OTHER ==
[2017-09-18] MEDS ORDERED: PROTONIX IV IVP STA (14:53)
[2017-09-18] MEDS ORDERED: SODIUM CHLORIDE 1,000 ML IV STA (14:53)
[2017-09-18] MEDS ORDERED: ZOFRAN 4 MG/2 ML IVP STA (14:53)
[2017-09-18 14:54] VITALS: BP 133/98; TEMP 99.1; BMI 22.6
--- NOTE | 2017-09-18 15:17 | CT ---
Exam: CT scan of the abdomen pelvis without contrast. Date: 09/18/2017. Comparison: None. HISTORY: Vomiting. TECHNIQUE: Helical scan of the abdomen pelvis was performed without contrast. FINDINGS: The lung bases are clear. The lumbar spine is within normal limits. There is a sclerotic area in the right iliac wing that may represent a bone island. The the spleen and liver have a uniform attenuation. The gallbladder, stomach, pancreas and adrenal glands are normal. The kidneys have a normal morphology. No calculi or hydronephrosis is seen. No retroperitoneal adenopathy is present. Aorta does not exceed 3 cm. The small bowel is normal. An a ppendectomy has been performed. The colon, pelvic sidewall and bladder are normal. There is no free pelvic fluid. There are dystrophic calcifications in the prostate. The rectum and inguinal regions are normal. Impression: No acute findings in the abdomen or pelvis.
--- NOTE | 2017-09-18 15:40 | ED.PDOC ---
General ED Provider: Dr. TRICE VALLECILLO-ER Chief Complaint: Nausea/Vomiting Stated Complaint: chelsie been vomiting--i have been out of my protonix Time Seen by Physician: 14:50 Mode of Arrival: Walk-In Information Source: Patient Exam Limitations: No limitations Primary Care Provider: TRICE VALLECILLO Nursing and Triage Documentation Reviewed and Agree: Yes Reviewed sepsis parameters & appropriate labs ordered?: Yes System Inflammatory Response Syndrome: Not Applicable Sepsis Protocol: For patient's 13 years and over: Temp is 96.8 and below OR 101 and greater Pulse >90 BPM Resp >20/minute Acutely Altered Mental Status Are patient's symptoms suggestive of a new infection, such as: -Pneumonia -Skin, Soft Tissue -Endocarditis -UTI -Bone, Joint Infection -Implantable Device -Acute Abdominal Infection -Wound Infection -Meningitis -Blood Stream Catheter Infection -Unknown GI Complaint Exam - Vomiting/Diarrhea Complaint/Exam Onset/Duration: 48hrs Symptoms Are: Still present Initial Severity: Mild Current Severity: Moderate Character of Vomiting: Reports: Non-bilious Associated Signs and Symptoms: Denies: Dizziness, Light-headedness, Melena, Hematemesis, Fever, Abdominal pain, Cramping Related History: Reports: Similar episode Non-GI Risk Factors: Reports: None [place] Respirations Present: No Differential Diagnoses: Viral Gastroenteritis Review of Systems - Review Of Systems Constitutional: Reports: No symptoms Eyes: Reports: No symptoms Ears, Nose, Mouth, Throat: Reports: No symptoms Respiratory: Reports: No symptoms Cardiac: Reports: No symptoms GI: Reports: No symptoms, Nausea, Vomiting : Reports: No symptoms Musculoskeletal: Reports: No symptoms Skin: Reports: No symptoms Neurological: Reports: No symptoms Endocrine: Reports: No symptoms Hematologic/Lymphatic: Reports: No symptoms All Other Systems: Reviewed and Negative Past Medical History - Past Medical History Previously Healthy: Yes Endocrine: Reports: None Cardiovascular: Reports: None Respiratory: Reports: None Hematological: Reports: None Gastrointestinal: Reports: None Genitourinary: Reports: None Neuro/Psych: Reports: None Musculoskeletal: Reports: Back Pain (neck surgery) Cancer: Reports: Other (ca melanoma) - Surgical History General Surgical History: Reports: Appendectomy, Orthopedic (neck surgery x2, hand surgery) - Family History Family History: Reports: Unknown - Social History Smoking Status: Current every day smoker, Heavy tobacco smoker Hx Substance Use: No Alcohol Screening: None Lives: With family Physical Exam - Physical Exam Appearance: Well-appearing, No pain distress, Well-nourished Eyes: JEAN PAUL, EOMI, Conjunctiva clear ENT: Ears normal, Nose normal, Oropharynx normal Neck: Supple Respiratory: Airway patent Cardiovascular: RRR, Pulses normal, No rub, No murmur GI/: Soft Musculoskeletal: Normal strength Skin: Warm Neurological: Sensation intact, Motor intact, Reflexes intact, Cranial nerves intact, Alert, Oriented Psychiatric: Affect appropriate, Mood appropriate Interpretation - Radiology Interpretation Radiology Interpretation By: Radiologist Radiology Results: Negative Exam Interpreted: CT Scan - EKG Interpretation Time of EKG #1: 15:40 Rate: Tachy Rhythm: Sinus Ectopy: None [place]: NL ST Segment: Normal Interpretation: sinus tach Re-Evaluation - Re-Evaluation Time of Re-Evaluation: 15:52 Status: Improved Vital Signs Stable: Yes Pain Level: 0 Appearance: NAD Lungs: Clear Skin: Warm and Dry Neuro: Alert and Oriented X3 CV: RRR Critical Care Note - Critical Care Note Total Time (mins): 0 Course - Course Hematology/Chemistry: 09/18/17 15:10 09/18/17 15:10 Orders, Labs, Meds: Lab Review 09/18/17 09/18/17 09/18/17 15:10 15:10 15:19 WBC 15.10 H RBC 5.83 Hgb 17.7 Hct 50.2 MCV 86.1 MCH 30.4 MCHC 35.3 RDW Coeff of Eddie 12.6 Plt Count 270 Immature Gran % (Auto) 0.4 Neut % (Auto) 82.1 Lymph % (Auto) 13.8 [place] % (Auto) 3.2 Eos % (Auto) 0.2 Baso % (Auto) 0.3 Immature Gran # (Auto) 0.1 Neut # (Auto) 12.4 H Lymph # (Auto) 2.1 [place] # (Auto) 0.5 Eos # (Auto) 0.0 Baso # (Auto) 0.0 Sodium 141 Potassium 4.3 Chloride 105 Carbon Dioxide 22 Anion Gap 18.3 BUN 7 Creatinine 0.85 Estimated GFR (MDRD) 101.00 BUN/Creatinine Ratio 8.23 Glucose 117 H Calcium 10.1 Total Bilirubin 0.6 AST 25 ALT 28 Alkaline Phosphatase 47 L Total Creatine Kinase 85 Troponin I < 0.0100 Total Protein 8.4 H Albumin 4.7 Globulin 3.7 Albumin/Globulin Ratio 1.27 Amylase 32 Lipase 28 Urine Color Urine Clarity Urine pH Ur Specific [place] Urine Protein Urine Glucose (UA) Urine Ketones Urine Blood Urine Nitrite Urine Bilirubin Urine Urobilinogen Ur Leukocyte Esterase Influ A Molecular Assay Negative by naat Influ B Molecular Assay Negative by naat 09/18/17 15:38 WBC RBC Hgb Hct MCV MCH MCHC RDW Coeff of Eddie Plt Count Immature Gran % (Auto) Neut % (Auto) Lymph % (Auto) [place] % (Auto) Eos % (Auto) Baso % (Auto) Immature Gran # (Auto) Neut # (Auto) Lymph # (Auto) [place] # (Auto) Eos # (Auto) Baso # (Auto) Sodium Potassium Chloride Carbon Dioxide Anion Gap BUN Creatinine Estimated GFR (MDRD) BUN/Creatinine Ratio Glucose Calcium Total Bilirubin AST ALT Alkaline Phosphatase Total Creatine Kinase Troponin I Total Protein Albumin Globulin Albumin/Globulin Ratio Amylase Lipase Urine Color Yellow Urine Clarity Clear Urine pH 6.5 Ur Specific [place] 1.010 Urine Protein Negative Urine Glucose (UA) Negative Urine Ketones Negative Urine Blood Negative Urine Nitrite Negative Urine Bilirubin Negative Urine Urobilinogen 0.2 Ur Leukocyte Esterase Negative Influ A Molecular Assay Influ B Molecular Assay Orders Category Date Time Status EKG-(ED ONLY) Stat CARDIO 09/18/17 14:53 Ordered ED IV/MEDIPORT/POWERPORT .ONCE EMERGENCY 09/18/17 14:53 Active AMYLASE Stat LAB 09/18/17 15:10 Completed CBC W/ AUTO DIFF Stat LAB 09/18/17 15:10 Completed COMPREHENSIVE METABOLIC PANEL Stat LAB 09/18/17 15:10 Completed CREATINE KINASE Stat LAB 09/18/17 15:10 Completed FLU A/B MOLECULAR Stat LAB 09/18/17 15:19 Completed LIPASE Stat LAB 09/18/17 15:10 Completed MOLECULAR GROUP A STREP Stat LAB 09/18/17 15:19 Completed TROPONIN I Stat LAB 09/18/17 15:10 Completed URINALYSIS C & S IF INDICATED Stat LAB 09/18/17 15:38 Completed 0.9 % Sodium Chloride [Saline Flush] MEDS 09/18/17 14:53 Ordered 1 syr IVF PRN PRN Ondansetron HCl/Pf [Zofran 4 mg/2 ml] MEDS 09/18/17 14:53 Discontinued 4 mg IVP ONCE STA Pantoprazole Sodium [Protonix IV] MEDS 09/18/17 14:53 Discontinued 40 mg IVP ONCE STA Sodium Chloride 0.9% [Sodium Chloride] 1,000 ml MEDS 09/18/17 14:[address] ABDOMEN/PELVIS WO CONTRAST Stat RADS 09/18/17 14:54 Completed Medications Generic Name Dose Route Start Last Admin Trade Name Freq PRN Reason Stop Dose Admin Sodium Chloride 1,000 mls @ 1,000 mls/hr 09/18/17 14:53 09/18/17 15:14 Sodium Chloride IV 09/18/17 15:52 1,000 mls/hr BOLUS STA Administration Sodium Chloride 1 syr 09/18/17 14:53 09/18/17 15:22 Saline Flush IVF 1 syr PRN PRN Administration To flush IV Discontinued Medications Generic Name Dose Route Start Last Admin Trade Name Freq PRN Reason Stop Dose Admin Ondansetron HCl 4 mg 09/18/17 14:53 09/18/17 15:20 Zofran 4 Mg/2 Ml IVP 09/18/17 14:54 4 mg ONCE STA Administration Pantoprazole Sodium 40 mg 09/18/17 14:53 09/18/17 15:15 Protonix Iv IVP 09/18/17 14:54 40 mg ONCE STA Administration Vital Signs: Temp Pulse Resp BP Pulse Ox 09/18/17 14:47 99.1 F 112 H 20 133/98 H 98 Departure - Departure Time of Disposition: 15:52 Disposition: HOME SELF-CARE Discharge Problem: Vomiting Instructions: Gastroesophageal Reflux Disease (ED) Condition: Good Pt referred to PMD for follow-up: Yes IPMP verified?: No Additional Instructions: get your script filled--zofran 4mg q 4hrs prn #4--f/u with pcp Allergies/Adverse Reactions: Allergies No Known Allergies Allergy (Verified 09/18/17 14:53) Home Medications: Ambulatory Orders Pantoprazole Sodium [Protonix] 40 mg PO QDAC 05/04/17 Disposition Discussed With: Patient
== END 2017-09-18 16:01 | disposition home or self-care (01) ==
LOC: ED 14:45
DX: K21.9 Gastro-esophageal reflux disease without esophagitis (principal); F17.210 Nicotine dependence, cigarettes, uncomplicated
CPT/HCPCS: 36415; 80053; 81001; 82150; 82550; 83690; 84484; 85025; 87502; 87651; 93005; 93010; 96361; 96374; 96375; 99283

== ENCOUNTER 2018-11-09 19:49 | Emergency (ER) ==
[2018-11-09 19:58] VITALS: BP 154/95; TEMP 97; BMI 22.7
[2018-11-09] MEDS ORDERED: MOTRIN PO STA (21:39)
--- NOTE | 2018-11-09 22:18 | ED.PDOC ---
General ED Provider: Dr. BALBIR TELLEZ Chief Complaint: Sore Throat Stated Complaint: Patient is a 38 year old who comes to the ER with complains of Sore throat for two days. Time Seen by Physician: 21:50 Mode of Arrival: Walk-In Information Source: Patient Primary Care Provider: TRICE VALLECILLO Nursing and Triage Documentation Reviewed and Agree: Yes Does patient meet sepsis criteria?: No System Inflammatory Response Syndrome: Not Applicable Sepsis Protocol: For patient's 13 years and over: Temp is 96.8 and below OR 101 and greater Pulse >90 BPM Resp >20/minute Acutely Altered Mental Status Are patient's symptoms suggestive of a new infection, such as: -Pneumonia -Skin, Soft Tissue -Endocarditis -UTI -Bone, Joint Infection -Implantable Device -Acute Abdominal Infection -Wound Infection -Meningitis -Blood Stream Catheter Infection -Unknown Review of Systems - Review Of Systems Constitutional: Reports: No symptoms Eyes: Reports: No symptoms Ears, Nose, Mouth, Throat: Reports: Throat pain Respiratory: Reports: No symptoms Cardiac: Reports: No symptoms GI: Reports: No symptoms : Reports: No symptoms Musculoskeletal: Reports: No symptoms Skin: Reports: No symptoms Neurological: Reports: No symptoms Endocrine: Reports: No symptoms Hematologic/Lymphatic: Reports: No symptoms All Other Systems: Reviewed and Negative Past Medical History - Past Medical History Previously Healthy: Yes Endocrine: Reports: None Cardiovascular: Reports: None Respiratory: Reports: None Hematological: Reports: None Gastrointestinal: Reports: None Genitourinary: Reports: None Neuro/Psych: Reports: None Musculoskeletal: Reports: Back Pain (neck surgery) Cancer: Reports: Other (ca melanoma) - Surgical History General Surgical History: Reports: Appendectomy, Orthopedic (neck surgery x2, hand surgery) - Family History Family History: Reports: Unknown - Social History Smoking Status: Current every day smoker Hx Substance Use: No Alcohol Screening: None - Immunizations Tetanus Shot up to Date: Yes Physical Exam - Physical Exam Appearance: Well-appearing Pain Distress: Moderate ENT: Ears normal, Nose normal, Erythema Neck: Supple Respiratory: Airway patent, Breath sounds clear, Breath sounds equal, Respirations nonlabored Cardiovascular: RRR, Pulses normal, No rub, No murmur Musculoskeletal: Normal strength, ROM intact, No edema, No calf tenderness Skin: Warm, Dry Neurological: Alert, Oriented Psychiatric: Anxious, Depressed Critical Care Note - Critical Care Note Total Time (mins): 0 Course - Course Orders, Labs, Meds: Orders Category Date Time Status RAPID STREP SCREEN [MOLECULAR GROUP A STREP] Stat LAB 11/09/18 22:10 Received Ibuprofen [Motrin] MEDS 11/09/18 21:39 Discontinued 800 mg PO ONCE STA Medications Discontinued Medications Generic Name Dose Route Start Last Admin Trade Name Freq PRN Reason Stop Dose Admin Ibuprofen 800 mg 11/09/18 21:39 11/09/18 21:45 Motrin PO 11/09/18 21:40 800 mg ONCE STA Administration Vital Signs: Temp Pulse Resp BP Pulse Ox 11/09/18 19:50 97.0 F L 66 18 154/95 H 99 Departure - Departure Time of Disposition: 22:45 Disposition: HOME SELF-CARE Discharge Problem: Sore throat symptom Instructions: Pharyngitis (ED) Condition: Stable Pt referred to PMD for follow-up: Yes IPMP verified?: No Additional Instructions: Push fluids Take Tylenol or Motrin as needed for pain Take Ultram as needed for severe pain Prescriptions: Ibuprofen [Motrin] 600 mg PO Q6H PRN #30 tablet PRN Reason: Analgesia Tramadol HCl [Ultram] 50 mg PO Q6H PRN #10 tablet PRN Reason: Severe Pain Allergies/Adverse Reactions: Allergies No Known Allergies Allergy (Verified 09/18/17 14:53) Home Medications: Ambulatory Orders Pantoprazole Sodium [Protonix] 40 mg PO QDAC 05/04/17 Ibuprofen [Motrin] 600 mg PO Q6H PRN #30 tablet 11/09/18 Tramadol HCl [Ultram] 50 mg PO Q6H PRN #10 tablet 11/09/18 Disposition Discussed With: Patient
== END 2018-11-09 22:55 | disposition home or self-care (01) ==
LOC: ED 19:49
DX: J02.9 Acute pharyngitis, unspecified (principal); F17.210 Nicotine dependence, cigarettes, uncomplicated
CPT/HCPCS: 87651; 99283